=== PATIENT | male | born 1990 | race Caucasian/White ===

== ENCOUNTER 2021-08-01 18:30 | Inpatient (IN) | payer MEDICAID ==
[~2021-08-01] VITALS: Ht 188 cm; Wt 118.2 kg
[2021-08-01 20:37] LABS: BASOPHILS # (AUTO) 0.1 X10'3 (0-0.2); EOSINOPHILS # (AUTO) 0.1 X10'3 (0-0.9); EOSINOPHILS % (AUTO) 1.1 % (0-6); HEMATOCRIT 43.8 % (42.0-52.0); HEMOGLOBIN 15.5 g/dl (14.0-17.9); LYMPHOCYTES # (AUTO) 2.9 X10'3 (1.1-4.8); LYMPHOCYTES % (AUTO) 28.3 % (21-51); MEAN CORPUSCULAR HEMOGLOBIN 35.6 PG (27.0-31.0); MEAN CORPUSCULAR HGB CONC 35.3 g/dL (33.0-36.5); MEAN PLATELET VOLUME 7.3 FL (7.4-10.4); MONOCYTES # (AUTO) 0.8 X10'3 (0-0.9); MONOCYTES % (AUTO) 7.7 % (2-12); NEUTROPHILS # (AUTO) 6.5 X10'3 (1.8-7.7); NEUTROPHILS % (AUTO) 61.9 % (42-75); PLATELET COUNT 293 X10'3 (140-440); RED BLOOD COUNT 4.34 X10'6 (4.70-6.10); RED CELL DISTRIBUTION WIDTH 13.8 % (11.5-14.5); WHITE BLOOD COUNT 10.4 X10'3 (4.5-11.0)
[2021-08-01 20:48] LABS: ALANINE AMINOTRANSFERASE 158 U/L (12-78); ALBUMIN 3.8 G/DL (3.4-5.0); ALKALINE PHOSPHATASE 131 IU/L (46-116); ANION GAP 13 (8-16); ASPARTATE AMINO TRANSFERASE 220 U/L (10-37); BILIRUBIN,TOTAL 1.4 MG/DL (0.1-1.0); BLOOD UREA NITROGEN 8 MG/DL (7-18); BUN/CREATININE RATIO 6.7 (5.4-32.0); CALCIUM 8.9 MG/DL (8.5-10.1); CHLORIDE 101 MMOL/L (99-107); CREATININE 1.19 MG/DL (0.60-1.10); GLUCOSE 114 MG/DL (70-104); LIPASE 154 U/L (73-393); POTASSIUM 3.9 MMOL/L (3.5-5.1); SODIUM 139 MMOL/L (135-145); TOTAL CARBON DIOXIDE 25.1 MMOL/L (24-32); TOTAL PROTEIN 7.8 G/DL (6.4-8.2); eGFR 71 ML/MIN
[2021-08-01 20:49] LABS: COLOR,URINE YELLOW (Yellow); GLUCOSE, URINE NEGATIVE (Neg); KETONES,URINE 15 mg/dl (Neg); LEUKOCYTE ESTERASE ,URINE NEGATIVE (Neg); OCCULT BLOOD,URINE NEGATIVE (Neg); PROTEIN,URINE 100 mg/dl (Neg)
[2021-08-01 20:54] LABS: UA COLLECTION TYPE CLN CATCH MIDSTREAM
[2021-08-01 20:55] LABS: CLARITY,URINE SLIGHTLY CLOUDY (Clear); NITRITES, URINE NEGATIVE (Neg)
[2021-08-01 20:56] LABS: BACTERIA,URINE FEW /HPF (Neg); MUCUS STRANDS MODERATE /LPF (Neg); RBC,URINE NONE SEEN /HPF (0-2); SQUAMOUS EPITHELIAL CELL,UR FEW /LPF (FEW); WBC,URINE 0-4 /HPF (0-4)
--- NOTE | 2021-08-01 22:15 | NUR ---
PT ROOMED IN BED 9. ASSUMED CARE OF PT. PT APPEAR ANXIOUS AND SPEAKS DEFENSIVELY WHEN ASKED QUESTIONS. NOTES THAT HIS BLOODY STOOLS HAVE BEEN GOING ON FOR THE PAST 3 MONTHS BUT THAT IT BECAME WORST OVER THE PAST SEVEN DAYS.
[2021-08-01] MEDS ORDERED: normal saline 1000ML IV soln IVB ONE (23:25)
[2021-08-01] MEDS ORDERED: ondansetron/PF 4mg/2ml inj IV ONE (23:25)
[2021-08-01] MEDS ORDERED: pantoprazole 40MG/D5 100ML BAG 100 ML IV ONE (23:25)
[2021-08-01] MEDS ORDERED: pantoprazole 40MG/NS 100ML BAG 100 ML IV ONE (23:33)
[2021-08-02] VITALS (8 sets, daily range): BP systolic 118–157; BP diastolic 59–104
[2021-08-02] MEDS ORDERED: morphine 4 MG/ML inj SYRINge IV ONE (00:50)
[2021-08-02] MEDS ORDERED: potassium Cl 20 mEq SR tablet PO PRN ×2 (01:00)
[2021-08-02] MEDS ORDERED: magnesium Cl slow-release 64mg tablet PO PRN (01:00)
[2021-08-02] MEDS ORDERED: LORazepam 2 mg/ml vial IV PRN (01:00)
[2021-08-02] MEDS ORDERED: magnesium 2GM in 50ml NS 50 ML IV PRN (01:00)
[2021-08-02] MEDS ORDERED: LORazepam 1 MG tablet PO PRN (01:00)
[2021-08-02] MEDS ORDERED: mag hydrox/Alum hydrox/simeth 30ml oral suspension PO PRN ×2 (01:00→01:35)
[2021-08-02] MEDS ORDERED: magnesium 4gm in 100ml NS 100 ML IV PRN (01:00)
[2021-08-02] MEDS ORDERED: ondansetron/PF 4mg/2ml inj IV PRN ×2 (01:00→01:35)
[2021-08-02] MEDS ORDERED: potassium CL 10mEq/100ml bag 100 ML IV PRN (01:00)
[2021-08-02] MEDS ORDERED: acetaminophen 325mg tablet PO PRN ×2 (01:00)
[2021-08-02] MEDS ORDERED: magnesium hydroxide 30ml (MOM) UD suspension PO PRN (01:00)
[2021-08-02] MEDS ORDERED: NO HOME MEDS (01:26)
[2021-08-02] MEDS ORDERED: HYDROmorphone inj. 0.5 MG/0.5 ML DISP.SYRIN IV PRN (01:35)
[2021-08-02] MEDS ORDERED: HYDROcodone/acetaminophen 5mg/325mg tablet PO PRN (01:35)
[2021-08-02] MEDS ORDERED: morphine 2 MG/ML inj. syringe IV PRN (01:35)
[2021-08-02] MEDS ORDERED: ondansetron 4mg rapidly disintigrating tab PO PRN (01:35)
[2021-08-02] MEDS ORDERED: HYDROmorphone/PF 0.2 MG/ML SYRINGE IV PRN (01:35)
[2021-08-02] MEDS: normal saline 1000ml 1,000 ML IV SCH ×3 (01:52→17:07)
[2021-08-02] MEDS: morphine 2 MG/ML inj. syringe IV PRN ×2 (01:54→13:01)
--- NOTE | 2021-08-02 06:35 | NUR ---
Problems reprioritized. Patient report given, questions answered & plan of care reviewed with Cinthya GONSALES.
[2021-08-02] MEDS: K and/or MAG REPLACEMENT MC SCH ×2 (08:00→20:00)
[2021-08-02 08:39] LABS: BASOPHILS % (AUTO) 0.6 % (0-1); EOSINOPHILS # (AUTO) 0.1 X10'3 (0-0.9); EOSINOPHILS % (AUTO) 1.3 % (0-6); HEMATOCRIT 41.6 % (42.0-52.0); HEMOGLOBIN 14.3 g/dl (14.0-17.9); LYMPHOCYTES # (AUTO) 2.5 X10'3 (1.1-4.8); LYMPHOCYTES % (AUTO) 29.3 % (21-51); MEAN CORPUSCULAR HEMOGLOBIN 35.1 PG (27.0-31.0); MEAN CORPUSCULAR HGB CONC 34.4 g/dL (33.0-36.5); MEAN CORPUSCULAR VOLUME 102.1 FL (78-98); MONOCYTES # (AUTO) 0.7 X10'3 (0-0.9); MONOCYTES % (AUTO) 8.2 % (2-12); NEUTROPHILS # (AUTO) 5.1 X10'3 (1.8-7.7); NEUTROPHILS % (AUTO) 60.6 % (42-75); PLATELET COUNT 211 X10'3 (140-440); RED BLOOD COUNT 4.08 X10'6 (4.70-6.10); RED CELL DISTRIBUTION WIDTH 14.2 % (11.5-14.5); WHITE BLOOD COUNT 8.4 X10'3 (4.5-11.0)
[2021-08-02 09:08] LABS: ALANINE AMINOTRANSFERASE 168 U/L (12-78); ALBUMIN 3.6 G/DL (3.4-5.0); ALBUMIN/GLOBULIN RATIO 1.1 (1.1-1.5); ALKALINE PHOSPHATASE 127 IU/L (46-116); ANION GAP 17 (8-16); ASPARTATE AMINO TRANSFERASE 269 U/L (10-37); BILIRUBIN,TOTAL 1.1 MG/DL (0.1-1.0); BLOOD UREA NITROGEN 8 MG/DL (7-18); BUN/CREATININE RATIO 7.8 (5.4-32.0); CALCIUM 8.4 MG/DL (8.5-10.1); CHLORIDE 102 MMOL/L (99-107); CREATININE 1.02 MG/DL (0.60-1.10); GLUCOSE 92 MG/DL (70-104); POTASSIUM 3.7 MMOL/L (3.5-5.1); SODIUM 140 MMOL/L (135-145); TOTAL CARBON DIOXIDE 21.1 MMOL/L (24-32); TOTAL PROTEIN 6.9 G/DL (6.4-8.2); eGFR 85 ML/MIN
[2021-08-02] MEDS ORDERED: iohexol 300mg/ml 100ml inj. ONE (09:54)
--- NOTE | 2021-08-02 10:18 | NUR ---
Patient was c/o stomach pain Doctor Jenna made aware order received for CT,MRI. Patient went for CT and MRI
[2021-08-02] MEDS: piperacillin/tazo 3.375gm/50ml 50 ML IV SCH ×3 (11:44→23:30)
[2021-08-02] MEDS: pantoprazole 40MG/NS 100ML BAG 100 ML IV SCH ×2 (11:45→20:23)
[2021-08-02] MEDS: nicotine 21mg patch - 24 hr TD SCH (13:10)
[2021-08-02] MEDS ORDERED: MIDAZolam 1 MG/ML 5ML VIAL ONE (14:26)
[2021-08-02] MEDS ORDERED: fentaNYL/PF 50MCG/1 ML 2ML syringe ONE (14:26)
[2021-08-02] MEDS ORDERED: LIDOcaine Viscous 15ml cup ONE (14:26)
[2021-08-02] MEDS ORDERED: fluconazole 100mg tablet PO ONE (16:10)
--- NOTE | 2021-08-02 16:24 | NUR ---
patient refused evening meds stated " i dont need them i am ready to go home"
--- NOTE | 2021-08-02 17:51 | NUR ---
Patient refused IV fluids stated " i just ready to go home" MD notified
--- NOTE | 2021-08-02 19:00 | NUR ---
Patient in room [facility]. I have received report from Cinthya Barlow and had the opportunity to ask questions and assume patient care. Addendum: 08/02/21 at 1923 by Breanna Farr RN Amended: Links added.
--- NOTE | 2021-08-02 19:23 | NUR ---
Report given,question answered and plan of care reviewed with DRU Carlos
[2021-08-02] MEDS ORDERED: pantoprazole 40MG/D5 100ML BAG 100 ML IV SCH (20:00)
[2021-08-02] MEDS ORDERED: haloperidol 5mg tablet PO PRN (20:05)
[2021-08-02] MEDS ORDERED: dextrose 50%-water 50ml dispensing syringe IV PRN (20:05)
[2021-08-02] MEDS ORDERED: haloperidol lactate 5mg/ml inj IM PRN (20:05)
[2021-08-02] MEDS: LORazepam 2 mg/ml vial IV PRN (20:35)
[2021-08-02] MEDS ORDERED: temazepam 15mg capsule PO PRN (21:00)
[2021-08-03] VITALS: BP 150/100
[2021-08-03] MEDS: normal saline 1000ml 1,000 ML IV SCH ×3 (02:27→16:00)
[2021-08-03 06:02] LABS: BASOPHILS % (AUTO) 0.9 % (0-1); EOSINOPHILS # (AUTO) 0.1 X10'3 (0-0.9); EOSINOPHILS % (AUTO) 1.6 % (0-6); HEMATOCRIT 38.2 % (42.0-52.0); HEMOGLOBIN 13.4 g/dl (14.0-17.9); LYMPHOCYTES # (AUTO) 1.2 X10'3 (1.1-4.8); LYMPHOCYTES % (AUTO) 26.5 % (21-51); MEAN CORPUSCULAR HEMOGLOBIN 35.3 PG (27.0-31.0); MEAN CORPUSCULAR HGB CONC 35.1 g/dL (33.0-36.5); MEAN CORPUSCULAR VOLUME 100.5 FL (78-98); MEAN PLATELET VOLUME 7.5 FL (7.4-10.4); MONOCYTES # (AUTO) 0.4 X10'3 (0-0.9); NEUTROPHILS # (AUTO) 2.9 X10'3 (1.8-7.7); PLATELET COUNT 148 X10'3 (140-440); RED CELL DISTRIBUTION WIDTH 13.4 % (11.5-14.5); WHITE BLOOD COUNT 4.6 X10'3 (4.5-11.0)
[2021-08-03 06:20] LABS: ALANINE AMINOTRANSFERASE 117 U/L (12-78); ALBUMIN 3.2 G/DL (3.4-5.0); ALBUMIN/GLOBULIN RATIO 1.1 (1.1-1.5); ALKALINE PHOSPHATASE 105 IU/L (46-116); ANION GAP 9 (8-16); ASPARTATE AMINO TRANSFERASE 129 U/L (10-37); BILIRUBIN,TOTAL 1.8 MG/DL (0.1-1.0); BLOOD UREA NITROGEN 7 MG/DL (7-18); BUN/CREATININE RATIO 6.8 (5.4-32.0); CHLORIDE 102 MMOL/L (99-107); CREATININE 1.03 MG/DL (0.60-1.10); GLUCOSE 96 MG/DL (70-104); POTASSIUM 4.1 MMOL/L (3.5-5.1); SODIUM 138 MMOL/L (135-145); TOTAL CARBON DIOXIDE 27.2 MMOL/L (24-32); TOTAL PROTEIN 6.1 G/DL (6.4-8.2); eGFR 84 ML/MIN
--- NOTE | 2021-08-03 06:37 | NUR ---
Problems reprioritized. Patient report given, questions answered & plan of care reviewed with Cinthya Barlow. Addendum: 08/03/21 at 0643 by Breanna Farr RN Amended: Links added.
--- NOTE | 2021-08-03 06:57 | NUR ---
Patient report received, questions answered and plan of care reviewed with DRU Carlos
[2021-08-03 07:00] VITALS: BP 143/103
[2021-08-03] MEDS: LORazepam 2 mg/ml vial IV PRN (07:37)
[2021-08-03] MEDS: K and/or MAG REPLACEMENT MC SCH ×6 (08:00→19:32)
[2021-08-03] MEDS: nicotine 21mg patch - 24 hr TD SCH (10:06)
[2021-08-03] MEDS: piperacillin/tazo 3.375gm/50ml 50 ML IV SCH ×4 (10:07→23:40)
[2021-08-03] MEDS: multivitamins, therapeutics tablet PO SCH (10:07)
[2021-08-03] MEDS: pantoprazole 40MG/NS 100ML BAG 100 ML IV SCH ×2 (10:07→19:42)
[2021-08-03] MEDS: fluconazole 100mg tablet PO SCH (10:07)
[2021-08-03] MEDS ORDERED: PEG 3350/Na sulf,bicarb,Cl/KCl oral sol 4 liter bottle PO ONE (10:10)
[2021-08-03 11:00] VITALS: BP 143/99
[2021-08-03] MEDS: HYDROcodone/acetaminophen 10/325mg tab PO PRN ×2 (16:00→20:50)
[2021-08-03] MEDS: morphine 2 MG/ML inj. syringe IV PRN ×2 (17:52→23:40)
[2021-08-03 18:00] VITALS: BP 146/102
--- NOTE | 2021-08-03 19:15 | NUR ---
Problems reprioritized. Patient report given, questions answered & plan of care reviewed with yamilet GONSALES.
[2021-08-04] VITALS: BP 143/90
[2021-08-04] MEDS: normal saline 1000ml 1,000 ML IV SCH (01:07)
[2021-08-04] MEDS: morphine 2 MG/ML inj. syringe IV PRN (04:42)
[2021-08-04 06:21] LABS: ALANINE AMINOTRANSFERASE 103 U/L (12-78); ALBUMIN 3.4 G/DL (3.4-5.0); ALBUMIN/GLOBULIN RATIO 1.2 (1.1-1.5); ALKALINE PHOSPHATASE 105 IU/L (46-116); ANION GAP 11 (8-16); ASPARTATE AMINO TRANSFERASE 108 U/L (10-37); BILIRUBIN,TOTAL 1.7 MG/DL (0.1-1.0); BLOOD UREA NITROGEN 7 MG/DL (7-18); BUN/CREATININE RATIO 7.3 (5.4-32.0); CALCIUM 8.9 MG/DL (8.5-10.1); CHLORIDE 102 MMOL/L (99-107); CREATININE 0.96 MG/DL (0.60-1.10); GLUCOSE 82 MG/DL (70-104); POTASSIUM 4.1 MMOL/L (3.5-5.1); SODIUM 138 MMOL/L (135-145); TOTAL CARBON DIOXIDE 24.9 MMOL/L (24-32); TOTAL PROTEIN 6.2 G/DL (6.4-8.2); eGFR > 90 ML/MIN
[2021-08-04 06:26] LABS: BASOPHILS % (AUTO) 0.8 % (0-1); EOSINOPHILS # (AUTO) 0.1 X10'3 (0-0.9); EOSINOPHILS % (AUTO) 1.7 % (0-6); HEMATOCRIT 38.1 % (42.0-52.0); HEMOGLOBIN 13.4 g/dl (14.0-17.9); LYMPHOCYTES # (AUTO) 1.4 X10'3 (1.1-4.8); LYMPHOCYTES % (AUTO) 29.2 % (21-51); MEAN CORPUSCULAR HEMOGLOBIN 35.6 PG (27.0-31.0); MEAN CORPUSCULAR HGB CONC 35.1 g/dL (33.0-36.5); MEAN CORPUSCULAR VOLUME 101.5 FL (78-98); MONOCYTES # (AUTO) 0.3 X10'3 (0-0.9); MONOCYTES % (AUTO) 6.7 % (2-12); NEUTROPHILS # (AUTO) 3.1 X10'3 (1.8-7.7); NEUTROPHILS % (AUTO) 61.6 % (42-75); PLATELET COUNT 171 X10'3 (140-440); RED BLOOD COUNT 3.76 X10'6 (4.70-6.10); RED CELL DISTRIBUTION WIDTH 13.5 % (11.5-14.5)
--- NOTE | 2021-08-04 06:38 | NUR ---
Patient report received, questions answered and plan of care reviewed with DRU Rodriguez
[2021-08-04] MEDS ORDERED: MIDAZolam 1 MG/ML 5ML VIAL ONE (07:24)
[2021-08-04] MEDS ORDERED: fentaNYL/PF 50MCG/1 ML 2ML syringe ONE (07:24)
--- NOTE | 2021-08-04 07:42 | NUR ---
Patient left for colonoscopy
[2021-08-04 07:45] VITALS: BP 158/103
[2021-08-04] MEDS: nicotine 21mg patch - 24 hr TD SCH (08:00)
[2021-08-04] MEDS: multivitamins, therapeutics tablet PO SCH (08:00)
[2021-08-04 09:06] VITALS: BP 150/104
[2021-08-04 09:16] VITALS: BP 154/107
[2021-08-04 09:26] VITALS: BP 153/113
[2021-08-04 09:36] VITALS: BP 155/84
[2021-08-04] MEDS: pantoprazole 40MG/NS 100ML BAG 100 ML IV SCH (10:10)
[2021-08-04] MEDS: piperacillin/tazo 3.375gm/50ml 50 ML IV SCH (10:10)
[2021-08-04] MEDS: fluconazole 100mg tablet PO SCH (10:11)
[2021-08-04] MEDS ORDERED: PANT-47 PO (10:52)
[2021-08-04] MEDS ORDERED: FLUC100T9 PO (10:52)
[2021-08-04] MEDS ORDERED: LORazepam 2 mg/ml vial IV PRN (20:05)
[2021-08-04] MEDS ORDERED: LORazepam 1 MG tablet PO PRN (20:05)
[2021-08-06] MEDS ORDERED: LORazepam 2 mg/ml vial IV PRN (20:05)
[2021-08-06] MEDS ORDERED: LORazepam 1 MG tablet PO PRN (20:05)
[2021-08-07] MEDS ORDERED: folic acid 1mg tablet PO SCH (08:00)
[2021-08-07] MEDS ORDERED: thiamine 100mg tablet PO SCH (08:00)
== END 2021-08-04 11:30 | disposition home or self-care (01) | DRG 241 ==
LOC: ER 18:31 → ED HOLD 08-02 01:06 → SUR 3N 08-02 04:40
PROVIDERS: ADMIT Internal Medicine; ATTEND Family Medicine
PROC: 0DB58ZX Excision of Esophagus, Via Natural or Artificial Opening Endoscopic, Diagnostic (ICD-10-PCS; principal; 2021-08-02)
PROC: 0DB68ZX Excision of Stomach, Via Natural or Artificial Opening Endoscopic, Diagnostic (ICD-10-PCS; 2021-08-02)
PROC: BW211ZZ Computerized Tomography (CT Scan) of Abdomen and Pelvis using Low Osmolar Contrast (ICD-10-PCS; 2021-08-02)
PROC: 0DBK8ZX Excision of Ascending Colon, Via Natural or Artificial Opening Endoscopic, Diagnostic (ICD-10-PCS; 2021-08-04)
PROC: 0DBL8ZX Excision of Transverse Colon, Via Natural or Artificial Opening Endoscopic, Diagnostic (ICD-10-PCS; 2021-08-04)
PROC: 0DBN8ZX Excision of Sigmoid Colon, Via Natural or Artificial Opening Endoscopic, Diagnostic (ICD-10-PCS; 2021-08-04)
PROC: 0DBM8ZX Excision of Descending Colon, Via Natural or Artificial Opening Endoscopic, Diagnostic (ICD-10-PCS; 2021-08-04)
PROC: 0DBL8ZX Excision of Transverse Colon, Via Natural or Artificial Opening Endoscopic, Diagnostic (ICD-10-PCS; 2021-08-04)
PROC: 0DBN8ZX Excision of Sigmoid Colon, Via Natural or Artificial Opening Endoscopic, Diagnostic (ICD-10-PCS; 2021-08-04)
PROC: 0DBP8ZX Excision of Rectum, Via Natural or Artificial Opening Endoscopic, Diagnostic (ICD-10-PCS; 2021-08-04)
DX: K29.70 Gastritis, unspecified, without bleeding (principal); B37.81 Candidal esophagitis; K29.80 Duodenitis without bleeding; Z20.822 Contact with and (suspected) exposure to COVID-19; F10.20 Alcohol dependence, uncomplicated; F12.90 Cannabis use, unspecified, uncomplicated; F17.210 Nicotine dependence, cigarettes, uncomplicated; K21.00 Gastro-esophageal reflux disease with esophagitis, without bleeding; K29.90 Gastroduodenitis, unspecified, without bleeding; K92.1 Melena; K44.9 Diaphragmatic hernia without obstruction or gangrene; K63.5 Polyp of colon; K64.8 Other hemorrhoids; N28.9 Disorder of kidney and ureter, unspecified; M54.50 Low back pain, unspecified; R74.01 Elevation of levels of liver transaminase levels; Z90.49 Acquired absence of other specified parts of digestive tract; Z88.5 Allergy status to narcotic agent; Z71.6 Tobacco abuse counseling
CPT/HCPCS: 36415; 43239; 45380; 45385; 71046; 74177; 74181; 76700; 80053; 81001; 82948; 83605; 83690; 85025; 85610; 87040; 87081; 87635; 99152; 99153; 99285; A4620; C1773; C9113; G0378; J2060; J2250; J2270; J2405; J2543; J3010; J7030; J7040; Q9967